=== PATIENT | male | born 1970 | race American Indian/Alaskan Native ===

== ENCOUNTER 2018-05-04 20:09 | Emergency (ER) | payer MEDICAID ==
[2018-05-04] MEDS ORDERED: Ibuprofen 800 MG Tab PO ONE (21:35)
--- NOTE | 2018-05-04 21:42 | EDM.PDOC ---
<Jeri Thakur - Last Filed: 05/04/18 22:35> ED HPI GENERAL MEDICAL PROBLEM - General Chief Complaint: Fever Stated Complaint: HEADACHE Time Seen by Provider: 05/04/18 21:20 Source of Information: Reports: Patient History Limitations: Reports: No Limitations - History of Present Illness INITIAL COMMENTS - FREE TEXT/NARRATIVE: Aleksandr presents tonight with complaints of headache and fever for for two days. He reports he has been taking acetaminophen for his fever with minimal relief. She also complains of generalized muscle aches. He denies nausea, vomiting, diarrhea. Treatments BODY HANGER: Reports: Acetaminophen Headache Pain Score (Numeric/FACES): 6 - Related Data Allergies Allergy/AdvReac Type Severity Reaction Status Date / Time No Known Allergies Allergy Verified 05/04/18 21:17 Home Meds: Home Meds NK [No Known Home Meds] 05/04/18 [History] Past Medical History - Past Health History Medical/Surgical History: Denies Medical/Surgical History Psychiatric History: Reports: Addiction - Infectious Disease History Infectious Disease History: Reports: Chicken Pox Social & Family History - Tobacco Use Smoking Status *Q: Current Every Day Smoker Years of Tobacco use: 20 Packs/Tins Daily: 0.5 Second Hand Smoke Exposure: Yes - Caffeine Use Caffeine Use: Reports: Coffee - Recreational Drug Use Recreational Drug Use: No ED ROS GENERAL - Review of Systems Review Of Systems: See Below Constitutional: Reports: Fever, Chills, Malaise. Denies: Weakness HEENT: Reports: Other (He complains of pain behind his eyes. ) Respiratory: Reports: No Symptoms Cardiovascular: Reports: No Symptoms Endocrine: Reports: No Symptoms GI/Abdominal: Reports: No Symptoms : Reports: No Symptoms Musculoskeletal: Reports: Muscle Pain Skin: Denies: Diaphoresis, Bruising, Rash, Erythema, Wound, Lesions Neurological: Reports: No Symptoms Psychiatric: Reports: No Symptoms Hematologic/Lymphatic: Reports: No Symptoms Immunologic: Reports: No Symptoms ED EXAM, GENERAL - Physical Exam Exam: See Below Free Text/Narrative:: Aleksandr is an alert and oriented 47 year old male presenting with complaints of fever, chills and muscle pain for the past 2 days. He reports use of acetaminophen has been helping a little with his fever and pain. Exam Limited By: No Limitations General Appearance: Alert, WD/WN, Mild Distress Eye Exam: Bilateral Eye: EOMI, Normal Inspection, PERRL Ears: Normal External Exam, Normal Canal, Hearing Grossly Normal, Normal TMs Ear Exam: Bilateral Ear: Auricle Normal, Canal Normal, TM normal Nose: Normal Inspection, Normal Mucosa, No Blood Throat/Mouth: Normal Inspection, Normal Lips, Normal Teeth, Normal Gums, Normal Oropharynx, Normal Voice, No Airway Compromise Head: Atraumatic, Normocephalic Neck: Normal Inspection, Supple, Non-Tender, Full Range of Motion. No: Lymphadenopathy (R), Lymphadenopathy (L) Respiratory/Chest: No Respiratory Distress, Lungs Clear, Normal Breath Sounds, No Accessory Muscle Use, Chest Non-Tender Cardiovascular: Normal Peripheral Pulses, Regular Rate, Rhythm, No Edema, No Murmur, No Rub Peripheral Pulses: 2+: Radial (L), Radial (R), Dorsalis Pedis (L), Dorsalis Pedis (R) GI/Abdominal: Normal Bowel Sounds, Soft, Non-Tender, No Organomegaly, No Distention, No Abnormal Bruit, No Mass Back Exam: Normal Inspection, Full Range of Motion. No: CVA Tenderness (R), CVA Tenderness (L) Extremities: Normal Inspection, Normal Range of Motion, Non-Tender, No Pedal Edema, Normal Capillary Refill Neurological: Alert, Oriented, CN II-XII Intact, Normal Cognition, Normal Gait, Normal Reflexes, No Motor/Sensory Deficits Psychiatric: Normal Affect, Normal Mood Skin Exam: Dry, Intact, Normal Color, No Rash, Increased Warmth, Other (Patient reports woodtick bites a few weeks ago. ) Lymphatic: No Adenopathy Course - Vital Signs Last Recorded V/S: Last Vital Signs Temp 99.6 F 05/04/18 23:02 Pulse 124 H 05/04/18 21:13 Resp 16 05/04/18 21:13 BP 163/104 H 05/04/18 21:13 Pulse Ox 97 05/04/18 21:13 - Orders/Labs/Meds Orders: Active Orders 24 hr Category Date Time Status BABESIA MICROTI ANTIBODY PANEL Urgent Lab 05/04/18 22:40 Received HUMAN GRANULOCYTIC RAMAKRISHNA-HGE Urgent Lab 05/04/18 22:40 Received INFLUENZA A+B AG SCREEN [RM] Stat Lab 05/04/18 22:06 Ordered LYME, TOTAL AB TEST/REFLEX Routine Lab 05/04/18 22:35 Received URINALYSIS W/MICROSCOPIC [UA W/MICROSCOPIC] [URIN] Stat Lab 05/04/18 21:15 Ordered Labs: Laboratory Tests 05/04/18 05/04/18 05/04/18 Range/Units 21:15 22:40 22:40 WBC 4.7 (4.5-11.0) K/uL RBC 4.83 (4.30-5.90) M/uL Hgb 15.1 H (12.0-15.0) g/dL Hct 43.1 (40.0-54.0) % MCV 89 (80-98) fL MCH 31 (27-31) pg MCHC 35 (32-36) % Plt Count 118 L (150-400) K/uL Sodium 132 L (140-148) mmol/L Potassium 3.8 (3.6-5.2) mmol/L Chloride 98 L (100-108) mmol/L Carbon Dioxide 22 (21-32) mmol/L Anion Gap 15.8 H (5.0-14.0) mmol/L BUN 15 (7-18) mg/dL Creatinine 1.0 (0.8-1.3) mg/dL Est Cr Clr Drug Dosing 96.22 mL/min Estimated GFR (MDRD) > 60 (>60) Glucose 139 H (74-106) mg/dL Calcium 8.0 L (8.5-10.1) mg/dL Urine Color Yellow Urine Appearance Clear Urine pH 6.5 (4.5-8.0) Ur Specific [place] 1.005 L (1.008-1.030) Urine Protein Negative (NEGATIVE) mg/dL Urine Glucose (UA) Normal (NEGATIVE) mg/dL Urine Ketones Negative (NEGATIVE) mg/dL Urine Occult Blood Negative (NEGATIVE) Urine Nitrite Negative (NEGAITVE) Urine Bilirubin Negative (NEGATIVE) Urine Urobilinogen Normal (NORMAL) mg/dL Ur Leukocyte Esterase Negative (NEGATIVE) Urine RBC 0-5 (0-5) Urine WBC 0-5 (0-5) Ur Epithelial Cells Few Amorphous Sediment Rare Urine Bacteria Rare Urine Mucus Rare Influenza screen negative. Temperature increased to 102.9 We will complete CBC, BMP, lymes testing. Meds: Medications Discontinued Medications Generic Name Dose Route Start Last Admin Trade Name Freq PRN Reason Stop Dose Admin Ibuprofen 800 mg 05/04/18 21:35 05/04/18 22:02 Motrin PO 05/04/18 21:36 800 mg ONETIME ONE Administration Departure - Departure Disposition: DC/Tfer to Other 70 Clinical Impression: Fever and chills - Discharge Information Instructions: Fever, Adult, [id number] Referrals: PCP,None [Primary Care Provider] - Forms: ED Department Discharge Care Plan Goals: Take antibiotic twice daily as prescribed, continue with Tylenol and ibuprofen for fever if needed. Recheck in 3-4 days if not improving, or return sooner if worsening despite antibiotic. We will be in touch with you with test results in the next 2-4 days. - My Orders Last 24 Hours: My Active Orders 05/04/18 21:15 URINALYSIS W/MICROSCOPIC [UA W/MICROSCOPIC] [URIN] Stat 05/04/18 22:35 LYME, TOTAL AB TEST/REFLEX Routine - Assessment/Plan Last 24 Hours: My Active Orders 05/04/18 21:15 URINALYSIS W/MICROSCOPIC [UA W/MICROSCOPIC] [URIN] Stat 05/04/18 22:35 LYME, TOTAL AB TEST/REFLEX Routine <Alhaji Mishra - Last Filed: 05/05/18 00:58> Course - Re-Assessments/Exams Free Text/Narrative Re-Assessment/Exam: 05/04/18 23:17 CBC and BMP were reassuring, white count was 4700. Patient likely has a viral syndrome, but will be covered with doxycycline pending the titres for tick disease. He can return if worsening despite treatment. We'll be in touch with him with lab results next week when available. Departure - Departure Time of Disposition: 00:25 Condition: Good
== END 2018-05-05 00:29 | disposition other institution (70) ==
LOC: JP.ED 20:09
DX: R50.9 Fever, unspecified (principal); F17.210 Nicotine dependence, cigarettes, uncomplicated
CPT/HCPCS: 36415; 80048; 81001; 85027; 86666; 86753; 87804; 99285; A9270